=== PATIENT | female | born 1970 | race Caucasian/White ===

== ENCOUNTER 2017-01-27 20:57 | Emergency (ER) | payer OTHER ==
[~2017-01-27] VITALS: Ht 167.6 cm; Wt 93.5 kg
[~2017-01-27 20:57] MED LIST: IBUP-103 PO
[2017-01-27 21:00] VITALS: TEMP 36.9; Ht 167.6 cm; Wt 93.5 kg
--- NOTE | 2017-01-27 21:12 | EMERGENCY ROOM VISIT NOTE ---
ED Visit Note First contact with patient: 21:05 CHIEF COMPLAINT: Foot pain HISTORY OF PRESENT ILLNESS: This 46-year-old female patient presents to the emergency department ambulatory complaining of swelling and pain in the left foot at rest and worse with weight bearing. The patient states she was stepping down off the porch and twisted her foot and ankle. The patient rates the pain as sharp and 5/10. The patient has no relief of the pain. The patient is able to walk. No numbness or weakness. No ankle pain. There are no lacerations of the foot. The patient is able to move all of their toes and their ankle without pain. Patient denies previous injury to this foot. REVIEW OF SYSTEMS: GENERAL: A 6 system review of systems was completed with positives and pertinent negatives in the HPI. ALLERGIES: No known allergies none MEDICATIONS: None PMH: None SOCIAL HISTORY: The patient lives locally with family. She does not smoke PHYSICAL EXAM: Vital Signs: Reviewed Nurse's notes, vital signs stable. GENERAL : Is a 46-year-old female, in no acute distress, but appears in pain, well- developed, well-nourished. MUSCULOSKELATAL: There is no visual deformity of the left foot. There is no erythema moderate swelling and ecchymosis. There is no warmth. There is tenderness and swelling over the lateral aspect of the left foot. The range of motion of the foot is minimally limited secondary to pain. There is no tenderness over the plantar fascia. Dorsi flexion 5/5 and Plantar flexion 5/5. The skin is intact and there are no lacerations or puncture wounds. Dorsalis pedis pulse 2+. Capillary refill less than 2 seconds. EMERGENCY DEPARTMENT COURSE: I examined the patient. An X-ray of the left foot was reviewed by myself and radiology and reveals fifth metatarsal fracture. The patient was placed in a walking boot and instructed on the use of crutches. She states she has seen Dr. Cortes's office. She should contact their office first in the morning to schedule a follow-up appointment. The patient declined pain medication. The patient was discharged home in good condition. LEFT ANKLE MIN 3 VIEWS ROUTINE, LEFT FOOT MIN 3 VIEWS ROUTINE CLINICAL HISTORY: fall, left ankle pain. Left foot pain. COMPARISON STUDY: None. FINDINGS: Mild soft tissue swelling within the ankle and lateral aspect of the midfoot. Small well-corticated ossific densities at the medial malleolus consistent with old avulsion injuries. No acute fracture or dislocation within the left ankle. Small plantar and posterior calcaneal spurs. Slightly distracted fracture at the lateral base of the fifth metatarsal. This extends to the tarsometatarsal joint. Mild osteoarthritis at the first MTP joint. IMPRESSION: Slightly distracted fracture at the lateral base of the fifth metatarsal. No fracture or dislocation within the left ankle. LEFT ANKLE MIN 3 VIEWS ROUTINE, LEFT FOOT MIN 3 VIEWS ROUTINE CLINICAL HISTORY: fall, left ankle pain. Left foot pain. COMPARISON STUDY: None. FINDINGS: Mild soft tissue swelling within the ankle and lateral aspect of the midfoot. Small well-corticated ossific densities at the medial malleolus consistent with old avulsion injuries. No acute fracture or dislocation within the left ankle. Small plantar and posterior calcaneal spurs. Slightly distracted fracture at the lateral base of the fifth metatarsal. This extends to the tarsometatarsal joint. Mild osteoarthritis at the first MTP joint. IMPRESSION: Slightly distracted fracture at the lateral base of the fifth metatarsal. No fracture or dislocation within the left ankle. Current/Historical Medications No Active Prescriptions or Reported Meds Allergies Coded Allergies: No Known Allergies (Verified Allergy, Mild, 0, 11/05/08) Vital Signs Date Time Temp Pulse Resp B/P (MAP) Pulse Ox O2 Delivery O2 Flow Rate FiO2 01/27/17 21:00 36.9 83 20 154/92 99 Room Air Departure Information Impression Primary Impression: Fracture of metatarsal of left foot, closed Dispostion Home / Self-Care Condition GOOD Prescriptions No Active Prescriptions or Reported Meds Referrals RV. Worthy MD (PCP) Anthony Mendez D.O. Patient Instructions Fifth Metatarsal Fx, My [facility] [place] [facility] Additional Instructions Tylenol or ibuprofen according to package instructions for pain Wear the walking boot and use crutches to assist in ambulation as needed Contact orthopedics first thing in the morning to schedule a follow-up appointment for further evaluation and management Ice and elevation frequently over the next 24-48 hours Problem Qualifiers Primary Impression: Fracture of metatarsal of left foot, closed Encounter type: initial encounter Metatarsal bone: fifth Fracture alignment : nondisplaced Qualified Codes: S92.355A - Nondisplaced fracture of fifth metatarsal bone, left foot, initial encounter for closed fracture
--- NOTE | 2017-01-27 21:50 | DIAGNOSTIC IMAGING REPORT ---
LEFT ANKLE MIN 3 VIEWS ROUTINE, LEFT FOOT MIN 3 VIEWS ROUTINE CLINICAL HISTORY: fall, left ankle pain. Left foot pain. COMPARISON STUDY: None. FINDINGS: Mild soft tissue swelling within the ankle and lateral aspect of the midfoot. Small well-corticated ossific densities at the medial malleolus consistent with old avulsion injuries. No acute fracture or dislocation within the left ankle. Small plantar and posterior calcaneal spurs. Slightly distracted fracture at the lateral base of the fifth metatarsal. This extends to the tarsometatarsal joint. Mild osteoarthritis at the first MTP joint. IMPRESSION: Slightly distracted fracture at the lateral base of the fifth metatarsal. No fracture or dislocation within the left ankle. Electronically signed by: Fred Tapia M.D. 01/27/2017 9:48 PM Dictated Date/Time: 01/27/2017 9:46 PM
[2017-01-27 22:29] VITALS: BP 128/74; PULSE 82; O2SAT 98
== END 2017-01-27 22:31 | disposition home or self-care (01) ==
LOC: C.EDB 20:58 → C.EDD 22:31
DX: S92.355A Nondisplaced fracture of fifth metatarsal bone, left foot, initial encounter for closed fracture (principal); X50.1XXA Overexertion from prolonged static or awkward postures, initial encounter